=== PATIENT | female | born 1970 | race Caucasian/White ===

== ENCOUNTER 2024-04-23 02:52 | Observation (INO) | payer BC, SELFPAY ==
[2024-04-22 23:43] VITALS: BMI 30.4
[2024-04-22 23:47] VITALS: BP 138/96
[2024-04-23] VITALS (8 sets, daily range): BP systolic 119–136; BP diastolic 67–84
--- NOTE | 2024-04-23 00:27 | ED.GENMED ---
History of Present Illness
General
Chief Complaint: Numbness
Source: patient
Exam Limitations: none
Time Seen by Provider: 04/23/24 00:00
Nursing documentation reviewed up to this point in time: agreed with
Travel History
Have you had any contact with someone who has COVID-19?: No
Do you have any symptoms of coronavirus? Fever > 100 degrees, chills, cough, shortness of breath, sore throat, loss of taste or smell, muscle aches, or headache?: No
History of Present Illness
History of Present Illness:
Patient is a 54-year-old female who presents to the emergency department complaining of 2 half hour episodes where the left side of her face and left upper extremity were numb and heavy. Patient questionably was slurring her speech. The first
occurred while out of the [place] ceremony with her daughter and the second occurred at home. Patient denies headache. Patient denies any visual problems. Patient also felt weak on the left side and had difficulty ambulating. Patient felt off
balance. At this point the patient is feeling better. Patient did feel her heart racing. When the first occurred she had not eaten much during the day so she ate a cookie and felt better. However patient states that she had difficulty keeping
focus and felt foggy with both episodes. Patient denies any previous history of similar episodes. Patient denies chest pain, shortness of breath. Patient denies any recent illnesses or injuries. Patient denies any GI or symptoms. Patient
denies history of smoking, hypertension or diabetes. Patient is borderline with regards to cholesterol. Patient's mother side of the family has a history of coronary artery disease. Patient does have a history of anxiety and depression and
recently had her BuSpar increased from 15 mg to 20 mg twice a day. Patient also takes Wellbutrin 300 mg a day. Patient states it did not feel like anxiety. Patient also states she is perimenopausal.
Past History
Past History
ED Past Medical History: Hypercholesterolemia and Psychiatric; Negative HTN or NIDDM
Social History
Tobacco: Non-smoker
Family History
Family History: CAD
Review of Systems
Review of Systems
All Other Systems: ROS reviewed and negative except as documented in HPI and ROS
Constitutional: Reports fatigue; Denies fever or chills
EENT: Reports no symptoms
Respiratory: Reports no symptoms
Cardiac: Reports palpitations; Denies chest pain, diaphoresis or syncope
ABD/GI: Reports no symptoms
: Reports no symptoms
Musculoskeletal: Reports no symptoms
Skin: Reports no symptoms
Neurological: Reports weakness and numbness; Denies dizzy or headache
Hematologic/Lymphatic: Reports no symptoms
Psychiatric: Reports no symptoms
Phy Exam
Physical Exam
Physical Exam:
Physical Exam
General: No apparent distress, alert and appropriate, well nourished, well hydrated
HENT: Normocephalic, supple with no lymphadenopathy, no thyromegaly
Eyes: Clear sclera, conjuctiva without injection
Heart: Regular rhythm and rate. No S3, S4. No murmur. No NVD, bruit
Lungs: No respiratory distress, no stridor, lung sounds clear and equal bilaterally
Abdomen: Soft, nontender, no organomegaly, no CVA tenderness, BS good
Neuro: Alert and oriented x 3, CN II - XII intact, no motor focality, no cerebellar dysfunction, sensation intact
Skin: no rash
Psychiatric: well kept. interactive and cooperative
Extremities: No edema, cyanosis, tenderness, Good and equal peripheral pulses.
Scores
NIH Stroke Score
Level of Consciousness: 0 - Alert
LOC Questions: 0-Answers both correctly
LOC Commands: 0-Performs both correctly
Best Horizontal Gaze: 0-Normal
Visual [place]: 0=Normal, no visual loss
Facial Palsy: 0=Normal, symmetrical
Motor - Right Arm: 0=No drift 10 seconds
Motor - Left Arm: 0=No drift 10 seconds
Motor - Right Le-No drift 5 seconds
Motor - Left Le-No drift 5 seconds
Limb Ataxia: 0-Absent
Sensation: 0-Normal
Best Language: 0-No aphasia
Dysarthria: 0-Normal
Extinction and Inattention: 0-No abnormality
Total Score:: 0
Course
Orders/Labs/Results
Orders:
Orders
04/22/24 23:58
EKG [Electrocardiogram (*1)] Urgent
Reason for Study: Shortness of Breath
EKG- Treatment ONCE
04/23/24 00:13
CT Head W/o Iv Contrast Urgent
Comment:
Reason For Exam: numbness and weakness left side
04/23/24 00:19
Complete Blood Count/With Diff Urgent
Erythrocyte Sed Rate Urgent
04/23/24 00:47
Comprehensive Metabolic Panel Urgent
Troponin I Urgent
04/23/24 01:36
Aspirin Chewable [Low Strength Aspirin] 324 mg PO NOW STA
Abnormal Lab Results
04/23/24
00:19
RBC 4.12 L 10^6/uL
(4.20-5.40)
Hct 36.3 L %
(37.0-47.0)
MCH 31.3 H pg
(27.0-31.0)
Abs Immat Gran (auto) 0.1 H 10^3/uL
(0-0.05)
Immature Gran % 1.0 H %
(0-0.5)
04/23/24 00:19
04/23/24 00:47
Vital Signs
Initial and Last Documented VS:
Initial Vital Signs
Temp Pulse Resp BP Pulse Ox
98.1 F 72 20 138/96 100
04/22/24 23:47 04/22/24 23:47 04/22/24 23:47 04/22/24 23:47 04/22/24 23:47
Last Documented Vital Signs
Temp Pulse Resp BP Pulse Ox
98.1 F 65 14 133/76 97
04/22/24 23:47 04/23/24 00:30 04/23/24 00:30 04/23/24 00:29 04/23/24 00:30
*Radiology
Radiology exam reviewed: radiology read reviewed (CT unremarkable)
*Pulse Oximetry
Patient hypoxic: no
*EKG
Interpreted by ED Provider?: Yes
EKG Intrepretation Date: 04/23/24
EKG Intrepretation Time: 00:32
Interpretation: normal
Comparison EKG: no comparison EKG present
Heart Rate: 67
Rate: normal
Rhythm: sinus
Lorain: normal axis
Interval: normal interval
QRS Pattern: normal QRS
Ischemia: no ischemia
*Wincher Interpretation
Rate: normal
Interpretation: normal
Heart Rate: 67
Rhythm: sinus
*Critical Care Note
Total Time (30-74mins, 75-104mins- exclusive of procedures): Not Applicable
Update Note
Update Note:
Unsure if this is a TIA or possibly anxiety reaction given the patient's lack of risk factors. In addition the patient is 89 and so certainly hypoglycemia may play a part. However the patient will be admitted for possible TIA.
ED Attending Note
-
Portions of this chart may have been created with voice recognition software.� Occasional wrong word or��sound alike� substitutions may have occurred due to the inherent limitations of voice recognition software.
Discharge Plan
Departure
Patient Disposition: Admit
Date of Disposition: 04/23/24
Time of Disposition: 01:35
Admit to: Telemetry
Admit to doctor: Hospitalist
Presentation/result/management discussed w/ accepting MD/DO: Hospitalist
Patient with high blood pressure during this ER visit?: No
Condition: Fair
Covid-19: Not Applicable
Discharge Problem:
Brain TIA
Prescriptions:
No Action
buspirone [BuSpar] 10 mg Tablet
20 mg PO BID
bupropion HCl [Wellbutrin XL] 300 mg Tablet Extended Release 24 Hr
300 mg PO DAILY
Referrals:
Avinash Xavier, DO [Family Provider] -
Interventions
Interventions:
*Risk Screen - Suicide Last Done: 04/22/24 23:47
*General Assessment Last Done: 04/22/24 23:47
*Neglect/Abuse Screening Last Done: 04/22/24 23:47
ED- Neurological Assessment Last Done: 04/23/24 00:39
Discharge Date and Time
Print Language: [place]
[2024-04-23 00:30] LABS: % Basophils 0.5 % (0-2); % Eosinophils 0.8 % (0-6); % Lymphocytes 21.1 % (20.5-51.1); % Monocytes 4.9 % (1.7-9.3); % Neutrophils 71.7 % (42.2-75.2); Absolute Eosinophils 0.1 10^3/uL (0-0.7); Absolute Immature Granulocytes 0.1 10^3/uL (0-0.05); Absolute Lymphocytes 1.6 10^3/uL (1.2-3.4); Absolute Monocytes 0.4 10^3/uL (0.1-0.6); Absolute Neutrophils 5.6 10^3/uL (1.4-6.5); Hematocrit 36.3 % (37.0-47.0); Hemoglobin 12.9 g/dL (12.0-16.0); Mean Corp Hgb Conc. 35.5 g/dL (33.0-37.0); Mean Corpuscular Hgb 31.3 pg (27.0-31.0); Mean Corpuscular Volume 88.1 fL (81.0-99.0); Mean Platelet Volume 10.2 fL (7.4-10.4); Nucleated Red Blood Cells % 0 %; Platelet Count 247 10^3/uL (130-400); Red Blood Cell Count 4.12 10^6/uL (4.20-5.40); White Blood Cell Count 7.8 10^3/uL (4.8-10.8)
[2024-04-23 00:49] LABS: Erythrocyte Sed Rate 10 mm/hour (0-20)
[2024-04-23 01:08] LABS: ALT (SGPT) 19 U/L (0-35); AST (SGOT) 25 U/L (14-36); Albumin 4.3 g/dl (3.5-5.0); Alkaline Phosphatase 54 U/L (38-126); Blood Urea Nitrogen 7 mg/dl (7-17); Calcium 9.2 mg/dl (8.4-10.2); Carbon Dioxide 26 mmol/L (22-30); Chloride 103 mmol/L (98-107); Estimated Creatinine Clearance 111 ml/min; Glucose 97 mg/dl (70-99); Potassium 3.6 mmol/L (3.5-5.1); Sodium 136 mmol/L (135-145); Total Bilirubin 0.9 mg/dl (0.2-1.3); Total Protein 6.9 g/dl (6.3-8.2); eGFR > 60.00
[2024-04-23 01:28] LABS: Troponin I < 0.012 ng/ml
[2024-04-23] MEDS: LOW STRENGTH ASPIRIN 324 MG PO (01:55)
--- NOTE | 2024-04-23 02:20 | HPS.HSE ---
Family Physician
-
Family Physician: Avinahs Xavier
Chief Complaint
-
Numbness
History of Present Illness
Patient is a 54y F with PMH significant for anxiety / depression who presents to ED complaining of numbness and tingling of the LUE. Patient states that she first noted the symptoms this evening around 6 PM. She had numbness and tingling in the
L arm from the shoulder to the fingertips. Patient states that she ate a cookie and her symptoms seemed to improve. Later in the evening, around 9:30 PM, patient noted recurrence of the symptoms. This time they were accompanied by numb and tingly
sensation in the left lips / face, palpitations, shortness of breath and lightheadedness. Patient presented to the ED for further evaluation and treatment.
Patient states that she noted 'slow' or 'sluggish' speech. Her did not appreciate any slurred speech or facial asymmetry.
Patient denies any headache, vision changes, etc. No ataxia or weakness of the LUE.
Patient notes that her buspirone prescription was increased from 15mg BID to 20mg BID two days ago.
No other recent med changes.
No personal history of SD / CVA, hypertension, DM, etc.
In the ED, patient has some mild residual tingling in the L 5th finger only. No other symptoms at this time.
Medical History
Past Medical History
Past Medical History: Reports Other
Additional Past Medical History:
Anxiety / Depression
Past Surgical History: Reports Other
Additional Past Surgical History:
Right Rotator Cuff Surgery
Social History
Tobacco: Non-smoker
Alcohol: Occasional
Drug: None
Personal:
Living: With Family
Family History
Family History: Other (Father: DM Mother: CAD)
Allergies / Home Medications
Allergies reflects when Allergies were last updated in [employer].
Home Medications with original date entered in [employer]
Allergy/Medication List:
Allergies
Allergy/AdvReac Type Severity Reaction Status Date / Time
Penicillins Allergy Hives Verified 04/22/24 23:47
Sulfa (Sulfonamide Allergy Hives Verified 04/22/24 23:47
Antibiotics)
Home Medications
bupropion HCl 300 mg 24 hr tablet, extended release (Wellbutrin XL) 300 mg PO DAILY 04/23/24
buspirone 10 mg tablet 20 mg PO BID 04/23/24
Review of Systems
-
History Source: Patient
A 12 point ROS was completed and negative except as noted: Yes
Constitutional: Reports Fatigue; Denies Fever or Chills
Respiratory: Reports Trouble Breathing; Denies Cough
Cardiac: Reports Palpitations; Denies Chest Pain
Abdomen/GI: Denies Abdominal Pain, Nausea, Vomiting or Diarrhea
: Denies Dysuria or Frequency
Musculoskeletal: Denies Joint Pain or Edema
Neurological: Reports Dizzy and Numbness; Denies Headache or Weakness
Psych: Reports Depression and Anxiety
Physical Exam
Vital Signs
Vital Signs
Temp Pulse Resp BP Pulse Ox
98.1 F 65 14 133/76 97
04/22/24 23:47 04/23/24 00:30 04/23/24 00:30 04/23/24 00:29 04/23/24 00:30
Physical Exam
General: Other (54y F in no acute distress.)
HEENT: Moist mucous membranes and PERRLA
Respiratory: Clear; No Wheezes, Rales or Rhonchi
Cardiac: S1/S2 and Regular Rhythm; No Murmur
GI: Soft, Non Tender, Non Distended and Normal Bowel Sounds
Musculoskeletal: No Clubbing, No Cyanosis and No Edema
Neuro: AO x 3 and Nonfocal/grossly intact
Psych: Anxious; No Depressed
Laboratory Results
-
04/23/24 00:19
04/23/24 00:47
Laboratory Results
Total Bilirubin 0.9 mg/dl (0.2-1.3) 04/23/24 00:47
AST 25 U/L (14-36) 04/23/24 00:47
ALT 19 U/L (0-35) 04/23/24 00:47
Alkaline Phosphatase 54 U/L (38-126) 04/23/24 00:47
Troponin I < 0.012 ng/ml 04/23/24 00:47
Impression/Plan
-
A/P: Patient is a 54y F with PMH significant for anxiety / depression who presents to ED complaining of numbness and tingling episodes this evening.
Paresthesia / Palpitations
- Observe overnight for further evaluation and treatment.
- Symptoms sound most c/w anxiety or panic syndrome - though patient denies having similar symptoms in the past.
- CT head was unremarkable in the ED.
- Check MR brain in the AM.
- Daily ASA for now.
- Neuro evaluation in AM for any additional recommendations.
- Follow neuro exam overnight for any changes.
Anxiety / Depression
- Not well controlled. Recent increase in buspirone dosing.
- Will return to usual 15mg dose for now - though seems unlikely that dose change resulted in current symptoms.
- Follow-up with outpatient provider for further evaluation / med adjustments.
DVT Prophylaxis: SCDs
Code Status: Full
[2024-04-23 05:27] LABS: Hematocrit 35.6 % (37.0-47.0); Hemoglobin 12.8 g/dL (12.0-16.0); Mean Corpuscular Hgb 31.8 pg (27.0-31.0); Mean Corpuscular Volume 88.3 fL (81.0-99.0); Mean Platelet Volume 10.2 fL (7.4-10.4); Platelet Count 241 10^3/uL (130-400); Red Blood Cell Count 4.03 10^6/uL (4.20-5.40); Red Cell Dist. Width 12.3 % (11.5-14.5); White Blood Cell Count 7.3 10^3/uL (4.8-10.8)
[2024-04-23 06:10] LABS: Blood Urea Nitrogen 6 mg/dl (7-17); Calcium 9.3 mg/dl (8.4-10.2); Carbon Dioxide 26 mmol/L (22-30); Chloride 103 mmol/L (98-107); Estimated Creatinine Clearance 110 ml/min; Glucose 98 mg/dl (70-99); HDL Cholesterol 76 mg/dl; LDL Cholesterol, Calculated 93 mg/dl; Sodium 139 mmol/L (135-145); Total Cholesterol 180 mg/dl (50-199); Triglyceride 57 mg/dl (10-149); Very Low Density Lipoprotein 11 mg/dl (0-30); eGFR > 60.00
[2024-04-23 06:30] LABS: TSH Reflex To Free T4 2.58 uIU/ml (0.47-4.68)
--- NOTE | 2024-04-23 07:57 | CON.NEURO4 ---
Addendum entered and electronically signed by Adilson Dai MD 04/23/24 12:47:
I saw and evaluate the patient reviewed note by Liliana Clay and agree with the findings the following comments:
54-year-old woman with a past no history of migraine with aura, anxiety, type I von Willebrand's disease, iron deficiency presenting the hospital with left-sided face and arm paresthesia.
She woke yesterday morning feeling okay and did have some palpitations as well as difficulty focusing and anxiety in the afternoon, then developed some left-sided paresthesia in the left upper arm left hand as well as left upper side of the mouth,
reports some heaviness in the left arm as well. Symptoms in total seem to last a couple of hours and seem to have resolved at this point. She can occasionally have some paresthesia on the left pinky and ring finger. Patient had a neck trauma.
Relates a history of spots and migraine visual aura associated with some infrequent migraine headaches usually around the time of her menstrual cycle around 1-2 times a month.
Had had small incrase in Buspirone recently.
Also relates some restless leg symptoms, has had some difficulty taking iron due to nausea.
Neurologic examination shows normal mental status normal cranial nerves, no numbness to palpation of the left ulnar nerve at the elbow
Normal strength of arm flexion finger extension finger abduction
Brain MRI reviewed as well as MRI of the neck, some spots on FLAIR that most likely represent sequela of migraines no acute or chronic infarct, only low-lying cerebellar tonsils without miles Chiari malformation is seen
Assessment: No concern for TIA or stroke. Most suspicious for anxiety and panic attack causing the symptoms, other possibilities could be strained muscle or peripheral nerve in the cervical region, migraine aura without headache.
Also has some restless leg syndrome and low ferritin most likely from menorrhagia.
Recommendations
-Nighttime iron supplementation may help with tolerability and the iron should help with this leg syndrome
-Agree with returning to the previous dose of BuSpar and agree consider going up to the higher dose for anxiety in the next several weeks if she feels okay
-Not needing any further neurologic imaging reassured that the brain MRI has no findings that are concerning whatsoever
-No need for chronic antiplatelet medications
-No barriers to discharge from my standpoint
Original Note:
Documented by User: Liliana Clay NP 04/23/24 10:50
Consultation - Neurology 4
-
CONSULTING PHYSICIAN: Marilu Dai MD
REFERRING PHYSICIAN: Hospitalists/Dr. Hand
DICTATED BY: RAMON Irizarry
DATE/TIME OF REQUEST: 04/23/24
DATE/TIME OF CONSULTATION: 04/23/24
Reason for Consultation: Numbness
History of Present Illness:
This is a 54-year-old right-handed female who has presented to the hospital with report of numbness in her LUE and left mouth. Patient reports a significant past medical history of anxiety and depression. For the past several weeks her anxiety has
been severe and she slowly titrated up her Buspar from 15mg BID to 20mg BID over the past week. Yesterday afternoon (04/22/24) she reports feeling very anxious, shaky, light-headed, dizzy, and unable to take a deep breath. She went to her daughter's
graduation ceremony in the evening and reports around 1800 she felt so anxious that she couldn't sit down. She developed a tingling sensation starting in her left upper arm that spread down to her entire left hand. She proceeded to go home and eat
something, and reports feeling improved and the numbness resolved. Then around 2130 all of her symptoms returned including her numbness, this time involving the left side of her mouth and her left arm felt heavy. She also reports feeling that her
speech as slow and she felt foggy. She decided to come to the ER for evaluation. CT head was obtained on arrival and is negative for any acute abnormalities. On arrival to the ER her numbness had mostly resolved except for tingling in her left hand
5th finger. Today (04/23/24), she reports having intermittent tingling in her left hand 4th and 5th fingers, feeling sick to her stomach, and generalized weakness. She has had numbness in her left hand 4th and 5th fingers before that is transient.
She denies any headache, vision changes, dizziness, swallowing difficulty, weakness, chest pain, palpitations, and shortness of breath.
She has a history of migraine headaches starting in her 40's associated with her menstrual cycle. her migraines are typically associated with mild photo/phonophobia, and sometimes nausea, she vomited on one occasional. She reports occasionally
seeing light floaters in her vision with her headaches but has never had numbness with a headache previously. She typically takes ibuprofen when she has a migraine, with relief. She denies any headache currently but does feel like her menstrual
cycle is going to start soon. She also notes a history of having a large, unexplained bruise on her left thigh about 2 years ago. She was evaluated by hematology Dr. Prather at that time and reports initially testing positive for von Willebrand
disease. At the time she was taking Prozac and was instructed to wean off of this. She stopped Prozac and reports that since then her labs have always come back normal. She denies any recent illnesses or history of TIA/stroke in the past and she is
not taking any blood thinning medications.
Past Medical History: Migraines, anxiety, depression, Type 1 von Willebrand's disease/decreased von Willebrand activity/antigen and reduced factor VIII level x1 assumed to be associated with Prozac usage, vertigo, TMJ, fatty liver, cardiac murmur,
DDD, vitamin D deficiency, low ferritin level, gallstones, IBS
Surgical History: R rotator cuff repair, right lower eyelid basal cell carcinoma removal/Mohs surgery
Family History: Reviewed and noncontributory.
Social History: Remote rare smoking. Occasional alcohol. Denies illicit drug use.
Allergies: Penicillins, sulfa.
Home Medications: See below.
Review of Symptoms:
Patient denies any fever, headache, chest pain, shortness of breath, or symptoms.
�Per the HPI.�All systems are reviewed negative except above.
Physical Exam:
The patient is afebrile, abdomen is nondistended, breathing is unlabored, skin is warm and dry, no edema.
NIH Stroke Scale:
I performed the NIH stroke scale on the patient on 04/23/24 at 0845. The patient scored 0 points on the NIH stroke scale assessment, which were assigned as follows: See below.
Neurologic Examination:
The patient is awake, alert and oriented x 3. She is able to follow commands and answer questions appropriately. There is no aphasia or dysarthria. On cranial nerve assessment, pupils are 3 mm bilateral, round and reactive to light and
accommodation. Visual denton are full. Extraocular movements are intact. Facial sensations are intact and bilaterally symmetrical, there is no facial asymmetry. Hearing is intact bilaterally to normal conversation volume. Tongue palate and uvula are
midline. Sternocleidomastoid strengths are full bilaterally. Motor strengths are 5/5 bilateral upper and lower extremities on medical research [place] scale. There is no drift or involuntary movement noted. Deep tendon reflexes are 2+ bilateral
upper and lower extremities and Babinski is absent bilaterally. Sensations of touch, temperature and vibration are intact and bilaterally symmetrical. There was no extinction noted on double simultaneous stimulation. Coordination is intact by finger
to nose bilaterally.
Lab Results: See below.
Neuro Imaging:
1. CT Head 04/23/24: No acute intracranial abnormality.
Differentials for the patient's presentation include:
1. Migraine aura, metabolic disturbance, demyelinating process, or anxiety possibly producing patient's symptoms.
2. Low concern for TIA or stroke, but possible. CT head negative for hemorrhage.
Patient has the following risk factors for their symptoms: Migraines, anxiety, hx low ferritin level
IV Tenecteplase/IAT candidacy: Not a candidate due to low NIHSS, unclear diagnosis.
Recommendations:
-MRI brain, MRA neck pending.
-Goal normotension.
-Okay to continue home mental health medication doses.
-NIHSS and neurological checks per unit guidelines.
-Provide patient with a stroke education packet.
-Checking blood work for metabolic abnormalities, see orders.
-LDL goal will be <70 if MRI brain demonstrates a stroke. LDL is 93.
-Goal normoglycemia, hbA1c pending.
-Will follow pending results.
Discussed patient care with: Dr. Dai, the patient
Vital Signs and Labs
-
Vital Signs and Labs:
Vital Signs
Temp Pulse Resp BP Pulse Ox
98.8 F 69 16 129/75 99
04/23/24 07:10 04/23/24 07:10 04/23/24 07:10 04/23/24 07:10 04/23/24 08:37
Lab Results
04/23/24 04:55
04/23/24 04:55
Sodium 139 mmol/L (135-145) 04/23/24 04:55
Potassium 4.0 mmol/L (3.5-5.1) 04/23/24 04:55
BUN 6 mg/dl (7-17) L 04/23/24 04:55
Glucose 98 mg/dl (70-99) 04/23/24 04:55
Calcium 9.3 mg/dl (8.4-10.2) 04/23/24 04:55
LDL Cholesterol, Calc 93 mg/dl 04/23/24 04:55
Medications
-
Active Medications
Generic Name Dose Route Start Last Admin
Trade Name Freq PRN Reason Stop Dose Admin
Acetaminophen 650 mg 04/23/24 04:33
Acetaminophen 325 Mg Tablet PO 05/21/24 04:32
Q4HPRN PRN
Mild Pain / Temp > 101
Aspirin 81 mg 04/24/24 08:00
Aspirin 81 Mg Chewable Tablet PO 05/22/24 07:59
DAILY ISABEL
Bupropion HCl 300 mg 04/23/24 08:00 04/23/24 08:09
Bupropion (24hr) Extended Release 300 Mg Tablet PO 05/21/24 07:59 300 mg
DAILY ISABEL Administration
Buspirone HCl 15 mg 04/23/24 08:00 04/23/24 08:09
Buspirone 10 Mg Tablet PO 05/21/24 07:59 15 mg
BID ISABEL Administration
Lorazepam 0.5 mg 04/23/24 08:48 04/23/24 09:52
Lorazepam 2 Mg/Ml Vial IV 05/21/24 08:47 0.5 mg
ONCE PRN Administration
on-call for MRI, claustrophria
Sodium Chloride 0 flush 04/23/24 05:00 04/23/24 09:52
Sodium Chloride 0.9% (Flush) Syringe IV 05/21/24 04:59 1 flush
PER PROTOCOL ISABEL Administration
Sodium Chloride 0.25 ml 04/23/24 08:52 04/23/24 09:52
Nss (Pf) 10 Ml Vial For Ativan 0.5 Mg Dose IV 05/21/24 08:51 0.25 ml
ONCE PRN Administration
DILUTE LORAZEPAM
Home Medications
�Medication �Instructions �Recorded
bupropion HCl 300 mg 24 hr tablet, 300 mg PO DAILY 04/23/24
extended release (Wellbutrin XL)
buspirone 10 mg tablet 20 mg PO BID 04/23/24
NIH Stroke Score
Subsequent NIH Scale
Date of Subsequent NIH Scale: 04/23/24
Time of Subsequent NIH Scale: 08:45
NIH Stroke Score
Level of Consciousness: 0 - Alert
LOC Questions: 0-Answers both correctly
LOC Commands: 0-Performs both correctly
Best Horizontal Gaze: 0-Normal
Visual [place]: 0=Normal, no visual loss
Facial Palsy: 0=Normal, symmetrical
Motor - Right Arm: 0=No drift 10 seconds
Motor - Left Arm: 0=No drift 10 seconds
Motor - Right Le-No drift 5 seconds
Motor - Left Le-No drift 5 seconds
Limb Ataxia: 0-Absent
Sensation: 0-Normal
Best Language: 0-No aphasia
Dysarthria: 0-Normal
Extinction and Inattention: 0-No abnormality
Total Score:: 0

Documented by User: Adilson Dai MD 04/23/24 12:42
NIH Stroke Score
NIH Stroke Score
Total Score:: 0
--- NOTE | 2024-04-23 07:59 | W.PN.HOSP.TC ---
Today's Communication/Plan
-
Discharge planning today.
Assessment / Plan
Assessment / Plan
Physical exam:
General: Well Developed, Well Nourished and No Apparent Distress
HEENT: Normocephalic, Atraumatic and Moist Mucous Membranes
Respiratory: Clear to Auscultation; Negative Wheezes, Rales or Rhonchi
Cardiac: Regular Rhythm and S1/S2
GI: Soft, Nontender and Nondistended
Musculoskeletal: No Clubbing, No Cyanosis and No Edema
Neuro: Awake, Alert and Oriented
Psych: Calm
A/P:
Paresthesia / Palpitations
- Observe overnight for further evaluation and treatment.
- Symptoms sound most c/w anxiety or panic syndrome - though patient denies having similar symptoms in the past.
- CT head was unremarkable in the ED.
- Check MR brain in the AM. MRI of the brain unremarkable as well as MRI. Discussed with neurology and cleared for discharge today
Anxiety / Depression
- Not well controlled. Recent increase in buspirone dosing.
- Will return to usual 15mg dose for now - though seems unlikely that dose change resulted in current symptoms.
- Follow-up with outpatient provider for further evaluation / med adjustments.
DVT Prophylaxis: SCDs
Code Status: Full
Anticipated Discharge: Today
Subjective/Interval History
-
Date of Service: April 23, 2024
Paresthesia intermittent in nature in the left upper extremity. No focal weakness.
Objective Data
-
Labs:
Laboratory Results
04/23/24 04/23/24 04/23/24
00:19 00:47 04:55
WBC 7.8 7.3
Hgb 12.9 12.8
Hct 36.3 L 35.6 L
Plt Count 247 241
Sodium Cancelled 136 139
Potassium Cancelled 3.6 4.0
Chloride Cancelled 103 103
Carbon Dioxide Cancelled 26 26
BUN Cancelled 7 6 L
Creatinine Cancelled 0.6 0.6
Glucose Cancelled 97 98
Calcium Cancelled 9.2 9.3
Total Bilirubin Cancelled 0.9
AST Cancelled 25
ALT Cancelled 19
Alkaline Phosphatase Cancelled 54
Vital Signs:
Vital Signs
Temp Pulse Resp BP Pulse Ox
98.4 F 68 17 119/73 99
04/23/24 04:04 04/23/24 04:04 04/23/24 04:04 04/23/24 04:04 04/23/24 04:15
I&O
04/22/24 04/23/24 04/24/24
06:59 06:59 06:59
Intake Total
Balance
[2024-04-23] MEDS: WELLBUTRIN XL (24 hour extended release) 300 MG PO (08:09)
[2024-04-23] MEDS: BUSPAR 15 MG PO (08:09)
[2024-04-23] MEDS: FLUSH (NSS) 1 FLUSH IV ×2 (08:09→09:52)
[2024-04-23] MEDS: ATIVAN 0.5 MG IV (09:52)
[2024-04-23] MEDS: NSS (PRESERVATIVE FREE) 0.25 ML IV (09:52)
--- NOTE | 2024-04-23 10:25 | PTOTSP ---
pt currently demonstrates ability to complete simple ADLs, functional transfers, ambulation with no assistance. no acute OT needs identified, will sign off.
--- NOTE | 2024-04-23 10:44 | W.DCSUMMARY ---
Discharge Summary
Discharge Data
Date of Admission: 04/23/24
Date of Discharge: 04/23/24
-
Pending Results: No
Hospital Course
Patient 54 years old female history of depression anxiety presented to the hospital left upper extremity paresthesias. Patient had a CT scan of the head no acute intracranial abnormality. Neurology consulted. MRI of the brain was performed and it
came back with no acute abnormalities intracranially. She also had MRA of the neck and no significant stenosis. Neurology cleared her for discharge today. It is possible etiology for symptoms could be related to anxiety. Also discussed the
possibility of of carpal tunnel syndrome but seems less likely but can be follow-up as outpatient with PCP. She will be discharged in stable condition today.
Discharge Plan
-
Patient Disposition: Home (Routine Discharge)
Discharge Diagnosis/Procedures: Paresthesias left upper extremity. Depression and anxiety.
Diet: Low Cholesterol
Activity: As tolerated
Driving Restrictions: As prior to admission
Blood Work: Please PCP to order CBC, BMP within 1 week
Referrals:
Avinash Xavier, DO [Family Provider] - in less than 1 week
Prescriptions:
Continued
buspirone 10 mg Tablet
20 mg PO BID
bupropion HCl [Wellbutrin XL] 300 mg Tablet Extended Release 24 Hr
300 mg PO DAILY
Discharge Orders:
Discharge Patient (As Directed); Ordered 04/23/24
Ordered By: Ford Torres
Discharge Date and Time
Print Language: MACEDONIAN
[2024-04-23 12:03] LABS: Ferritin 12.8 ng/ml (11.1-264.0)
[2024-04-23 12:34] LABS: Folate > 20.0 ng/ml (2.76-20); Vitamin B12 396 pg/ml (239-931)
--- NOTE | 2024-04-23 12:50 | PTOTSP ---
Patient demonstrates good understanding of safety with transfers, ambulation and elevations without use of AD. Does not demonstrate continued need for skilled therapy at this time; will discharge. If needs change, please re-consult.
[2024-04-23 14:24] LABS: Glycohemoglobin (HgbA1c) 4.9 % (4.0-5.6)
== END 2024-04-23 14:19 | disposition home or self-care (01) ==
LOC: 4 EAST ACU 02:52
PROVIDERS: ADMITTING PHYSICIAN Hospitalist; ATTENDING PHYSICIAN Hospitalist; CONSULT PHYSICIAN Student in an Organized Health Care Education/Training Program; EMERGENCY PHYSICIAN Emergency Medicine; FAMILY PHYSICIAN Family Medicine
DX: R20.2 Paresthesia of skin (principal); F32.A Depression, unspecified; F41.9 Anxiety disorder, unspecified; E78.00 Pure hypercholesterolemia, unspecified; G25.81 Restless legs syndrome; D68.01 Von Willebrand disease, type 1; E55.9 Vitamin D deficiency, unspecified; K58.9 Irritable bowel syndrome, unspecified; K76.0 Fatty (change of) liver, not elsewhere classified; Z79.899 Other long term (current) drug therapy; Z87.891 Personal history of nicotine dependence
CPT/HCPCS: 70450; 70548; 70551; 80048; 80053; 80061; 82607; 82728; 82746; 83036; 84443; 84484; 85025; 85027; 85652; 93005; 97162; 97165; 99285; A9585; G0378